=== PATIENT | female | born 1965 | race American Indian/Alaskan Native ===

== ENCOUNTER 2017-11-20 10:30 | Outpatient (CLI) | payer OTHER ==
--- NOTE | 2017-11-20 13:12 | Mammography Report ---
Bilateral digital screening mammogram with CAD. Comparison is made to a previous study on July 12, 2016. Findings: There are several small right breast masses which are stable in size and configuration since the previous study. No new masses or other suspicious interval changes are seen. There is heterogeneous density of the breast parenchyma. No architectural distortion or suspicious microcalcifications are seen. Impression: Stable benign findings. BI-RADS code: 2. Recommendation: Annual screening.
== END 2017-11-20 10:31 | disposition home or self-care (01) ==
LOC: MAMMO 10:30
PROVIDERS: ATTEND Internal Medicine
DX: Z12.31 Encounter for screening mammogram for malignant neoplasm of breast (principal)
CPT/HCPCS: 77067; G0202